=== PATIENT | female | born 1990 | race Two or more races ===

== ENCOUNTER 2017-01-18 20:08 | Emergency (ER) | payer MEDICAID ==
[2017-01-18 20:18] VITALS: BP 127/79
--- NOTE | 2017-01-18 20:22 | ED Physician Documentation ---
PD HPI ABD PAIN - Stated complaint Stated Complaint: LOW AB PX - Chief complaint Chief Complaint: Abd Pain - History obtained from History obtained from: Patient - History of Present Illness Timing - onset: How many minutes ago (45) Timing - details: Abrupt onset Pain level max: 9 Pain level now: 2 Quality: Pain Location: LLQ Radiation: Other (no radiation) Improved by: Laying still Worsened by: Moving Associated symptoms: No: Fever, Nausea, Vomiting, Diarrhea, Constipation, Vaginal bleeding, Vaginal dc Similar symptoms before: No diagnosis (one previous similar episode in September of this year, resolved without requiring medical attention) Recently seen: Not recently seen - Additional information Additional information: sudden onset left pelvic pain while at rest, onset 45 minutes CHEMIST INSTRUMENTATION. Patient took 800mg Ibuprofen CHEMIST INSTRUMENTATION with significant improvement Review of Systems Constitutional: reports: Reviewed and negative GI: reports: Abdominal Pain. denies: Abdominal Swelling, Nausea, Vomiting, Constipation, Diarrhea : denies: Dysuria, Frequency, Now EGA Musculoskeletal: denies: Back pain PD PAST MEDICAL HISTORY - Past Medical History Past Medical History: No - Past Surgical History Past Surgical History: No - Present Medications Home Medications: Ambulatory Orders Medication Instructions Recorded Confirmed No Known Home Medications [No 01/18/17 01/18/17 Known Home Medications] - Allergies Allergies/Adverse Reactions: Allergies Allergy/AdvReac Type Severity Reaction Status Date / Time No Known Drug Allergies Allergy Verified 01/18/17 20:16 - Living Situation Living Arrangement: reports: At home PD ED PE NORMAL - Vitals Vital signs reviewed: Yes - General General: Alert and oriented X 3, No acute distress, Well developed/nourished - Cardiac Cardiac: RRR, No murmur - Respiratory Respiratory: No respiratory distress, Clear bilaterally - Abdomen Abdomen: Normal bowel sounds, Soft, Non distended - Back Back: No CVA TTP PD ED PE EXPANDED - Abdomen Abdomen: Tender to palpation (LUQ, periumbilicus, LLQ (greatest in LLQ)) Results - Vitals Vitals: Vital Signs - 24 hr 01/18/17 20:16 Temperature 35.9 C L Heart Rate 85 Respiratory 16 Rate Blood Pressure 127/79 O2 Saturation 100 Oxygen O2 Source Room air - Labs Labs: Laboratory Tests 01/18/17 01/18/17 01/18/17 20:20 20:20 20:54 WBC 16.0 H RBC 4.57 Hgb 13.1 Hct 39.8 MCV 87.1 MCH 28.7 MCHC 32.9 RDW 13.3 Plt Count 212 MPV 7.5 L Neut # 13.3 H Lymph # 1.9 [place] # 0.5 Eos # 0.1 Baso # 0.1 Absolute Nucleated RBC 0.01 Nucleated RBCs 0.0 Sodium Potassium Chloride Carbon Dioxide Anion Gap BUN Creatinine Estimated GFR (MDRD) Glucose Calcium Urine Color YELLOW Urine Clarity CLEAR Urine pH 7.0 Ur Specific [place] 1.015 1.015 Urine Protein NEGATIVE Urine Glucose (UA) NEGATIVE Urine Ketones NEGATIVE Urine Occult Blood NEGATIVE Urine Nitrite NEGATIVE Urine Bilirubin NEGATIVE Urine Urobilinogen 0.2 (NORMAL) Ur Leukocyte Esterase NEGATIVE Ur Microscopic Review NOT INDICATED Urine Culture Comments NOT INDICATED Urine HCG, Qual NEGATIVE 01/18/17 20:54 WBC RBC Hgb Hct MCV MCH MCHC RDW Plt Count MPV Neut # Lymph # [place] # Eos # Baso # Absolute Nucleated RBC Nucleated RBCs Sodium 138 Potassium 3.9 Chloride 105 Carbon Dioxide 27 Anion Gap 6.0 BUN 17 Creatinine 0.8 Estimated GFR (MDRD) 85 L Glucose 107 H Calcium 9.1 Urine Color Urine Clarity Urine pH Ur Specific [place] Urine Protein Urine Glucose (UA) Urine Ketones Urine Occult Blood Urine Nitrite Urine Bilirubin Urine Urobilinogen Ur Leukocyte Esterase Ur Microscopic Review Urine Culture Comments Urine HCG, Qual - Rads (name of study) pelvic US Radiology: Prelim report reviewed, See rad report PD MEDICAL DECISION MAKING - ED course Complexity details: reviewed results, re-evaluated patient, considered differential, d/w patient Departure - Departure Disposition: 01 Home, Self Care Clinical Impression: Pelvic pain Condition: Good Instructions: ED Pelvic Pain [facility] Discharge Date/Time: 01/18/17 23:51
[2017-01-18 20:45] LABS: HCG UR QUAL NEGATIVE
[2017-01-18 20:56] LABS: BILIRUBIN,URINE NEGATIVE (NEGATIVE); UA CHARGE (STRIP ONLY) YES; UR CULTURE IF IND NOT INDICATED
[2017-01-18 21:06] LABS: BASOPHILS # (AUTO) 0.1 10^3/uL (0.0-0.1); BASOPHILS % (AUTO) 0.5 %; EOSINOPHILS # (AUTO) 0.1 10^3/uL (0.0-0.7); EOSINOPHILS % (AUTO) 0.9 %; HCT - HEMATOCRIT 39.8 % (37.0-47.0); HGB - HEMOGLOBIN 13.1 g/dL (12.0-16.0); LYMPHOCYTES # (AUTO) 1.9 10^3/uL (1.5-3.5); LYMPHOCYTES % (AUTO) 12.2 %; MEAN CORPUSCULAR HEMOGLOBIN 28.7 pg (27.0-31.0); MEAN CORPUSCULAR HGB CONC 32.9 g/dL (32.0-36.0); MEAN CORPUSCULAR VOLUME 87.1 fL (81.0-99.0); MEAN PLATELET VOLUME 7.5 fL (7.9-10.8); MONOCYTES # (AUTO) 0.5 10^3/uL (0.0-1.0); MONOCYTES % (AUTO) 2.9 %; NEUTROPHILS # (AUTO) 13.3 10^3/uL (1.5-6.6); NEUTROPHILS % (AUTO) 83.5 %; RED BLOOD COUNT 4.57 10^6/uL (4.20-5.40); RED CELL DISTRIBUTION WIDTH 13.3 % (12.0-15.0)
[2017-01-18 21:17] LABS: CALCIUM 9.1 mg/dL (8.5-10.3); CREATININE 0.8 mg/dL (0.4-1.0); POTASSIUM 3.9 mmol/L (3.5-5.0)
--- NOTE | 2017-01-18 23:09 | Ultrasound Report ---
EXAM: PELVIC ULTRASOUND EXAM DATE: 01/18/2017 10:40 PM. CLINICAL HISTORY: Left pelvic pain. COMPARISON: None. TECHNIQUE: Realtime transabdominal pelvic scan performed to identify the uterus and adnexa and as an overview of other pelvic structures, with static image documentation. FINDINGS: Uterus: 9.5 x 5.2 x 6.2 cm, volume 160 cc. Anteverted position. Normal overall size and echotexture. Masses: None. Endometrium: 14 mm. Normal. Cervix: Unremarkable. Right Ovary: 3.3 x 2.5 x 1.8 cm, volume 8 cc. Normal echotexture and blood flow. Left Ovary: 3.9 x 1.9 x 2.4 cm, volume 4 cc. Normal echotexture and blood flow. Free Fluid: Small amount of free fluid within the pelvis. Other: None. IMPRESSION: Negative transabdominal pelvic ultrasound. [facility] Referring Provider Line: [phone] SITE ID: [id number]
== END 2017-01-18 23:51 | disposition home or self-care (01) ==
LOC: ED 20:08
DX: R10.2 Pelvic and perineal pain (principal)
CPT/HCPCS: 36415; 76856; 80048; 81001; 81003; 81025; 85025; 87086; 93976; 99283